=== PATIENT | female | born 1940 | race Caucasian/White ===

== ENCOUNTER → 2017-06-07 | Outpatient (CLI) | payer MEDICARE, BC ==
[~2017-06-07] MED LIST: ASPI-147 PO; ATOR40TA16 PO; CALCTAB32 PO; CHOL100025 CHEW; FLUT1SPR16 NASAL; FOLI1TAB6 PO; GLUC1TAB38 PO; GNP3TAB PO; HYDR-3366 PO; HYDR-3516 PO; HYDR25TA5 PO; LEVO50TA4 PO; LOSA50TA PO; METO25TA3 PO; MOBI15TA PO; SODI1TAB PO; TH BTAB PO; TIZA2TAB PO; TRAZ50TA12 PO; ZANT150T2 PO
[2017-06-07 11:22] LABS: AUTOMATED NEUTROPHIL # 2.9 TH/MM3 (1.8-7.7); BASOPHIL % 0.7 % (0.0-2.0); EOSINOPHIL # 0.2 TH/MM3 (0-0.4); EOSINOPHIL % 3.7 % (0.0-4.0); HEMATOCRIT 35.6 % (35.0-46.0); HEMO FLAGS DIFF FINAL; LYMPH % 33.2 % (9.0-44.0); LYMPHOCYTE # 1.9 TH/MM3 (1.0-4.8); MEAN CELL VOLUME 105.5 FL (80.0-100.0); MEAN CORPUSCULAR HEMOGLOBIN 35.8 PG (27.0-34.0); MONO % 11.6 % (0.0-8.0); NEUT % 50.8 % (16.0-70.0); PLATELET COUNT 204 TH/MM3 (150-450); RED BLOOD COUNT 3.38 MIL/MM3 (4.00-5.30); RED CELL DISTRIBUTION WIDTH 11.9 % (11.6-17.2); WHITE BLOOD COUNT 5.7 TH/MM3 (4.0-11.0)
== END ==
LOC: CPRE 10:55
PROVIDERS: ATTEND Orthopaedic Surgery Orthopaedic Surgery of the Spine
DX: Z01.812 Encounter for preprocedural laboratory examination (principal); M48.06 Spinal stenosis, lumbar region
CPT/HCPCS: 36415; 85025

== ENCOUNTER → 2017-06-19 | Day surgery (SDC) | payer MEDICARE, BC ==
--- NOTE | 2017-06-18 20:10 | MH ---
cc: JUNO BAILEY DATE OF ADMISSION 06/19/2017 ADMISSION DIAGNOSIS Lumbar spinal stenosis. HISTORY OF THE PRESENT ILLNESS This patient is a 76-year-old female with significant pain in her back and pain extending into the legs. Investigative studies shows evidence of degenerative change throughout the lumbar spine with spinal stenosis worse at L3-4, L4-5. The patient is felt to be a candidate for surgical treatment. She is having radiating leg pain with weakness. We discussed the possibility of fusion versus decompression surgery alone. Because of the care for her ill she wants to proceed forward with decompressive surgery without effusion. PAST MEDICAL HISTORY, SOCIAL HISTORY AND FAMILY HISTORY Some see attached notes. REVIEW OF SYSTEMS See attached notes. PHYSICAL EXAMINATION 5 feet 0. 140 pounds, BMI 26.7. VITAL SIGNS: Blood pressure 136/82. HEENT: Normocephalic, atraumatic. Pupils equal, round, reactive to light and accommodation. Extraocular motions intact. NECK: Supple. CHEST: Clear. HEART: Regular rate and rhythm. ABDOMEN: Soft, nontender, normoactive bowel sounds. MUSCULOSKELETAL: Restricted motion, pain with range of motion, left ankle dorsiflexion 4/5. IMPRESSION 1. Lumbar spinal stenosis L3-4 and L4-L5. 2. Left greater than right lumbosacral radiculopathy. PLAN Lumbar laminectomy, left L3-4, L4-5, lateral recess decompression, use of dilation port and microscope. CONSENT The risks for surgery including infection, bleeding, loss of motion, continued pain, need for further surgery, neurological and vascular injury. The patient understand these issues and wishes to press on with surgery as outlined above. Juno Bailey MD MCG/KK /6:03 PM /7:54 PM
[~2017-06-19] VITALS: Ht 157.5 cm; Wt 66.2 kg
[~2017-06-19] MED LIST changes: +*morphine SULFATE 8 MG/ML PERIprocedure ONLY ONE; +ACETAMINOPHEN 1000 MG/100 ML VIAL IV ONE; +ACETAMINOPHEN/HYDROcodone 325 MG/7.5 MG TAB PO PRN; +BETAMETHASONE SOD PHOS/ACETATE SUSP 30 MG/5 ML VIAL ONE; +BUPIVACAINE/EPINEPHRINE 0.25% 50 ML VIAL ONE; +CHLORHEXIDINE GLUCONATE 2 % 1 PACK (2 CLOTHS) TOPICAL PRN; +DO NOT ADM ANY ANTICOAGULANT DRUGS PRN; +GELFOAM SIZE 100 ONE; +GENTAMICIN SULFATE 80 MG/2 ML VIAL ONE; +HYDROmorphone HCL PF 2 MG/ML VIAL ONE; +INSULIN HUMAN REGULAR 1,000 UNITS/10 ML VIAL SQ PRN; +KETOROLAC TROMETHAMINE 60 MG/2 ML (IM) VIAL IM ONE; +LACTATED RINGER'S 1000 ML INJ 1,000 ML IV ONE; +LACTATED RINGER'S 1000 ML IV PRN; +METOPROLOL TARTRATE 25 MG TAB PO PRN; +MIDAZOLAM HCL 2 MG/2 ML VIAL ONE; +MORPHINE SULFATE 4 MG/ML INJ IV PUSH PRN; +NEOSTIGMINE 3 MG/3 ML SYR IV ONE; +ONDANSETRON HCL 4 MG/2 ML VIAL IV PUSH ONE; +POVIDONE IODINE 5% (ANTISEPSIS KIT) 4 APPLICATIONS EACH NARE PRN; +POVIDONE IODINE 7.5% SCRUB 118 ML BOTTLE TOPICAL SCH; +PROPOFOL 200 MG/20 ML AMP IV ONE; +SODIUM CHLOR 0.9% 1000 ML INJ 1,000 ML IV SCH; +SODIUM CHLORID 0.9% 500 ML IV PRN; +ceFAZolin 2 GM PREMIX 50 ML IV SCH; +ePHEDrine/NS 25 MG/5 ML SYR IV ONE; +fentaNYL CITRATE 250 MCG/5 ML AMP ONE
[2017-06-19 08:42] VITALS: BP 164/93; PULSE 78; RESP 18; TEMP 98.9; O2SAT 97
--- NOTE | 2017-06-19 13:05 | PD.OP ---
Operative Report Date of Surgery: Jun 19, 2017 Preoperative Diagnosis: Lumbar spinal stenosis L3 4 and L4 5. Left greater than right lumbosacral radiculopathy Postoperative Diagnosis: Same Procedure: Bilateral lumbar laminectomy from the left L3 4 with lateral recess decompression. Bilateral lumbar laminectomy from the left L4 5 with lateral recess decompression. Use of dilation port and microscope Anesthesia: Gen. Surgeon: Matthew Wu Senior Strategy Manager(s): BRIDGET Scales Operation and Findings: EBL: 50 cc INDICATION: Patient is a 76-year-old female with significant spinal stenosis L3 4 and L4 5. There are features consistent with instability at the L3 4 level. The patient presents for lumbar decompressive laminectomy. NOTE: Bailey Scales PA-C was present for the entire surgical procedure as my music library assistant. In my medical opinion her skill and care was necessary for the proper management of this patient. PROCEDURE: The patient was brought to the operating room and anesthetized in the supine position. The patient was rolled to a prone position on a Danny frame on a Victor Manuel table. All pressure points were protected in the back was scrubbed with alcohol followed by Hibiclens followed by ChloraPrep and draped sterilely. A timeout was done and antibiotics were given. AP and lateral radiographic images were used to identify the proper levels and perform skin markings. We started from the left side at the L3 4 level. A paramedian incision was made and an off-midline fascial incision was made. A dilating system was placed down to the interlaminar space and held provisionally to the side of the table. The microscope was brought into the field. A high-speed bur under the microscope was used to perform a partial bilateral laminectomy from that side. A lateral recess decompression focusing predominantly on the left side was accomplished using straight and angled Kerrison punches. A partial medial facetectomy was accomplished. The crossing and exiting nerve roots were completely decompressed. We moved to the L4 5 level. A separate fascial incision was made. A dilating system was placed down to the interlaminar space and held provisionally to the side of the table. The microscope was brought back into the field. A high- speed bur under the microscope was used to perform a bilateral laminectomy from that side. A lateral recess decompression focusing on the left side was accomplished using straight and angled Kerrison punches. A partial medial facetectomy was accomplished. The crossing and exiting nerve roots were completely decompressed. The wound was irrigated copiously. Hemostasis was controlled. The deep fascia was approximated with interrupted 0 Vicryl suture subcutaneous suture with 2-0 Vicryl suture and skin with running intradermal 3-0 Vicryl followed by Dermabond. A field block with local anesthesia was utilized. A sterile dressing was applied. The sponge count and needle counts and instrument counts were all correct. The patient tolerated the procedure well as taken to the recovery room in satisfactory condition. FINDINGS: There was evidence of a high-grade stenosis at and below the disc space L3 4 on the left side with significant compression upon the crossing L4 nerve root. This was very adherent to that region. The lateral recess otherwise showed moderate to advanced spinal stenosis. The decompression was felt be very satisfactory. No complication was appreciated. Matthew Wu MD Jun 19, 2017 13:05
--- NOTE | 2017-06-19 13:15 | RADRPT ---
EXAM DATE/TIME: 06/19/2017 12:14 [facility] COMPARISON: No previous studies available for comparison. INDICATIONS : L3-L4, L4-L5 Laminectomy. MEDICAL HISTORY : None. SURGICAL HISTORY : None. ENCOUNTER: Initial ACUITY: 1 day PAIN SCORE: Non-responsive. LOCATION: lumbar FINDINGS: 2 lateral spot fluoroscopic images obtained in the operating room during a procedure demonstrate inst ruments overlying the posterior elements at L3-L4 and L4-L5. CONCLUSION: Instruments overlie the posterior element at L3-L4 and L4-L5. Jony Shepherd MD on June 19, 2017 at 13:13 Board Certified Radiologist. This report was verified electronically.
[2017-06-19 15:25] VITALS: BP 157/86; PULSE 67; RESP 18; TEMP 98.9; O2SAT 97
== END | disposition home or self-care (01) ==
LOC: HSDC 07:38
PROVIDERS: ATTEND Orthopaedic Surgery Orthopaedic Surgery of the Spine
DX: M48.06 Spinal stenosis, lumbar region (principal); M54.17 Radiculopathy, lumbosacral region
CPT/HCPCS: 00630; 63047; 63048; 72020; 76000; J0131; J1580; J1885; J2250; J2270; J2405; J2710; J3010; J7120; J0702; J1170